=== PATIENT | female | born 1930 | race Caucasian/White ===

== ENCOUNTER 2018-06-10 13:19 | Outpatient (CLI) | payer MEDICARE ==
--- NOTE | 2018-06-10 14:29 | RAD ---
CHEST TWO VIEWS: HISTORY: Cough. COMPARISON: 03/28/2017 FINDINGS: Atherosclerosis of the aorta. Stable calcified left hilar lymph node. Normal cardiac silhouette. P ulmonary vessels and hilum are normal. Costophrenic angles are clear. Lungs are hyperinflated with chronic changes. No consolidation. No pneumothorax or osseous abnormalities. IMPRESSION: 1. Atherosclerosis. 2. No acute cardiopulmonary process. POS: [facility]
== END 2018-06-10 13:20 | disposition home or self-care (01) ==
LOC: BICRAD 13:19
PROVIDERS: ATTEND Internal Medicine
DX: R05 Cough (principal); I70.0 Atherosclerosis of aorta
CPT/HCPCS: 71046

== ENCOUNTER 2018-07-08 11:42 | Emergency (ER) | payer MEDICARE | END 2018-07-08 12:35 | disposition home or self-care (01) | LOC: ERS 11:42 | DX: G51.0 Bell's palsy (principal); I10 Essential (primary) hypertension | CPT/HCPCS: 99283 ==

== ENCOUNTER 2018-10-22 12:39 | Emergency (ER) | payer MEDICARE ==
--- NOTE | 2018-10-22 13:44 | CT ---
FCT Brain WO Con: 10/22/2018 12:57 PM CLINICAL HISTORY: Injury with pain. COMPARISON: None. FINDINGS: Hemorrhage: None. Ventricular system: Mildly enlarged, likely due to parenchymal atrophy. Cerebral parenchyma: Microvascular ischemic disease Midline shift: None. Calvarium: Normal. Visualized Paranasal sinuses: Scattered mild inflammatory mucosal thickening. IMPRESSION: No acute intracranial abnormalities.
== END 2018-10-22 14:18 | disposition home or self-care (01) ==
LOC: ERS 12:39
DX: S00.01XA Abrasion of scalp, initial encounter (principal); I10 Essential (primary) hypertension; W01.198A Fall on same level from slipping, tripping and stumbling with subsequent striking against other object, initial encounter
CPT/HCPCS: 70450

== ENCOUNTER 2018-11-25 09:21 | Outpatient (CLI) | payer MEDICARE ==
--- NOTE | 2018-11-25 10:32 | ULT ---
US Abdominal HISTORY: Abdominal pain COMPARISON: None. FINDINGS: Real-time imaging of the upper abdomen was performed. This shows a small nonshadowing echog enic focus within the gallbladder measuring 3 to 4 mm in size most compatible with a small polyp. The common duct is normal in caliber at 4 mm. The liver measures 16 cm in length and shows no focal a bnormalities. It is of mild increased echogenicity. The spleen measures 9.4 cm. Right and left kidneys are within normal limits for size and not obstructed. The pancreas is obscured. Abdominal aorta and IVC regions are unremarkable. IMPRESSION: 1. Small gallbladder polyp. 2. Fatty change of the liver.
== END 2018-11-25 09:22 | disposition home or self-care (01) ==
LOC: BICULT 09:21
PROVIDERS: ATTEND Internal Medicine Gastroenterology
DX: R10.9 Unspecified abdominal pain (principal); R11.0 Nausea; R14.0 Abdominal distension (gaseous); K82.4 Cholesterolosis of gallbladder; K76.0 Fatty (change of) liver, not elsewhere classified
CPT/HCPCS: 76700

== ENCOUNTER 2021-03-03 23:35 | Emergency (ER) | payer MEDICARE | END 2021-03-04 01:33 | disposition home or self-care (01) | LOC: ERS 23:35 | DX: S42.202A Unspecified fracture of upper end of left humerus, initial encounter for closed fracture (principal); R60.0 Localized edema; I10 Essential (primary) hypertension; W19.XXXA Unspecified fall, initial encounter | CPT/HCPCS: 99283 ==